=== PATIENT | male | born 1990 | race Two or more races ===

== ENCOUNTER 2017-11-26 15:55 | Emergency (ER) | payer MEDICARE, OTHER, BC ==
[~2017-11-26] VITALS: Ht 172.7 cm; Wt 75.0 kg
[2017-11-26 15:58] VITALS: BP 121/77
[2017-11-26] MEDS ORDERED: LAMO25TA4 PO (16:00)
[2017-11-26] MEDS ORDERED: IBUPROFEN 600MG TABLET PO STA (17:28)
[2017-11-26] MEDS ORDERED: BACITRACIN ZINC OINT UDPKT TOP ONE (18:15)
== END 2017-11-26 19:07 | disposition home or self-care (01) ==
LOC: ER 16:13
DX: S80.01XA Contusion of right knee, initial encounter (principal); R56.9 Unspecified convulsions; H91.90 Unspecified hearing loss, unspecified ear; V29.9XXA Motorcycle rider (driver) (passenger) injured in unspecified traffic accident, initial encounter; Y93.89 Activity, other specified; Y92.89 Other specified places as the place of occurrence of the external cause; Y99.8 Other external cause status
CPT/HCPCS: 73562; 99284